=== PATIENT | female | born 1945 | race Caucasian/White ===

== ENCOUNTER 2017-07-25 14:30 | Inpatient (IN) | payer MEDICARE ==
[~2017-07-25] VITALS: Ht 149.9 cm; Wt 50.8 kg
--- NOTE | 2017-07-25 15:05 | NUR ---
Dr. Solis at bedside for MSE.
[2017-07-25 15:43] LABS: BASOPHILS # (AUTO) 0.1 K/uL (0.0-8.0); BASOPHILS % (AUTO) 1.4 % (0.0-2.0); EOSINOPHILS # (AUTO) 0.1 K/uL (0.0-0.7); EOSINOPHILS % (AUTO) 2.4 % (0.0-7.0); HEMATOCRIT 33.6 % (31.2-41.9); HEMOGLOBIN 10.7 g/dL (10.9-14.3); LYMPHOCYTES % (AUTO) 17.2 % (20.5-51.5); MEAN CORPUSCULAR HEMOGLOBIN 19.3 uug (24.7-32.8); MEAN CORPUSCULAR HGB CONC 32 g/dL (32.3-35.6); MEAN CORPUSCULAR VOLUME 60.6 fL (75.5-95.3); MONOCYTES # (AUTO) 0.7 K/uL (2.0-10.0); MONOCYTES % (AUTO) 11.8 % (0.0-11.0); NEUTROPHILS # (AUTO) 3.8 K/uL (1.8-8.9); NEUTROPHILS % (AUTO) 67.2 % (38.5-71.5); PLATELET COUNT (AUTO) 275 K/uL (179-408); RED BLOOD CELL COUNT(AUTO) 5.55 MIL/uL (3.63-4.92); WHITE BLOOD COUNT (AUTO) 5.6 K/uL (3.8-11.8)
[2017-07-25 15:52] LABS: CARBON DIOXIDE 23 mmol/L (21-32); CHLORIDE 110 mmol/L (98-107); CREATININE 0.6 mg/dL (0.6-1.3); GLUCOSE 86 mg/dL (74-106); POTASSIUM 3.8 mmol/L (3.5-5.1); UREA NITROGEN, BLOOD 17 mg/dL (7-18)
[2017-07-25 15:58] LABS: ALANINE AMINOTRANSFERASE 22 U/L (14-59); ALKALINE PHOSPHATASE 64 U/L (50-136); ASPARTATE AMINOTRANSFERASE 20 U/L (15-37); BILIRUBIN,DIRECT 0.2 mg/dL (0.0-0.2); BILIRUBIN,TOTAL 0.8 mg/dL (0.2-1.0); TOTAL PROTEIN, SERUM 6.9 g/dL (6.4-8.2)
[2017-07-25 16:01] LABS: *BILIRUBIN,URIN NEGATIVE (NEGATIVE); *BLOOD, URINE NEGATIVE (NEGATIVE); *COLOR,URINE YELLOW (YELLOW); *KETONES,URINE TRACE (NEGATIVE); *PROTEIN,URINE NEGATIVE (NEGATIVE); *UROBILINOGEN,URINE 0.2 E.U./dl (NORMAL); LEUKOCYTE ESTERASE ,URINE 2+ (NEGATIVE); NITRITE, URINE NEGATIVE (NEGATIVE); UGLUCOSE NEGATIVE (NEGATIVE)
[2017-07-25 16:01] LABS: ETHANOL < 3 MG/DL (0-0)
[2017-07-25 16:08] LABS: *CLARITY,URINE SLIGHTLY HAZY (CLEAR)
[2017-07-25 16:13] LABS: *AMPHETAMINE, URINE NEGATIVE (NEGATIVE); *BARBITURATE, URINE NEGATIVE (NEGATIVE); *CANNABINOID, URINE NEGATIVE (NEGATIVE); *COCCAINE, URINE NEGATIVE (NEGATIVE); *OPIATE, URINE NEGATIVE (NEGATIVE); *PHENCYCLIDINE SCREEN,URINE NEGATIVE (NEGATIVE)
[2017-07-25 16:15] LABS: BACTERIA,URINE FEW /HPF (NONE SEEN); MUCUS,URINE MODERATE /LPF (0-FEW); SQUAMOUS EPITHELIAL CELL,UR FEW /HPF (NONE SEEN)
[2017-07-25 16:29] LABS: BAND % (MANUAL) 1 % (0-10); EOSINOPHILS % (MANUAL) 2 % (0-8); LYMPHOCYTES % (MANUAL) 19 % (20-40); MONOCYTES % (MANUAL) 13 % (2-10); NEUTROPHILS % (MANUAL) 65 % (42-75)
[2017-07-25 16:52] LABS: THYROID STIMULATING HORMONE < 0.007 mIU/mL (0.358-3.740)
[2017-07-25] MEDS ORDERED: MAGNESIUM HYDROXIDE 30 ML LIQUID UDC PO PRN (17:30)
[2017-07-25] MEDS ORDERED: MAG HYDROX/AL HYDROX/SIMETH 30 ML LIQUID UDC PO PRN (17:30)
[2017-07-25] MEDS ORDERED: TEMAZEPAM 7.5 MG CAPSULE PO PRN (17:30)
[2017-07-25 18:34] VITALS: BP 119/65
--- NOTE | 2017-07-25 18:37 | NUR ---
1715 Admitted [facility] psych unit a 72 yr. old female placed on 5150 for danger to self. patient verbalized suicidal ideation, not comply with her medications. Patient has Hx.depression, , bipolar disorder. suicidal ideationw/ plan to hang herself. Patient admitted to unit with a calm manner, cooperative and denies SI,. Admission care done. 1730 Dr. Javed notified with orders . 1800 Dr. Naylor notified of the admission, meds needs to be reconciled.
[2017-07-25 20:38] VITALS: BP 140/60
--- NOTE | 2017-07-25 22:30 | NUR ---
received to care, lying in bed, isolative, but able to make her needs known, to staff. compliant with medications, and staff direction. bactrim ds started tonight, for UTI. continues to deny suicidal ideations, or any desire to harm self. as of 2229, she appears to be asleep. no distress noted. will continue to monitor closely.
[2017-07-25] MEDS: SULFAMETH/TRIMETH 800/160 MG TABLET PO SCH (22:35)
[2017-07-25] MEDS ORDERED: SULFAMETH/TRIMETH 800/160 MG TABLET ONE (22:47)
[2017-07-26 07:30] VITALS: BP 139/58
[2017-07-26 08:10] LABS: IRON, SERUM 57 ug/dL (50-175)
[2017-07-26 08:25] LABS: BASOPHILS # (AUTO) 0.1 K/uL (0.0-8.0); BASOPHILS % (AUTO) 1.3 % (0.0-2.0); EOSINOPHILS # (AUTO) 0.3 K/uL (0.0-0.7); EOSINOPHILS % (AUTO) 4.9 % (0.0-7.0); HEMATOCRIT 35.3 % (31.2-41.9); HEMOGLOBIN 11.1 g/dL (10.9-14.3); LYMPHOCYTES # (AUTO) 1.1 K/uL (20.0-40.0); LYMPHOCYTES % (AUTO) 19.1 % (20.5-51.5); MEAN CORPUSCULAR HEMOGLOBIN 19.2 uug (24.7-32.8); MEAN CORPUSCULAR HGB CONC 32 g/dL (32.3-35.6); MONOCYTES # (AUTO) 0.8 K/uL (2.0-10.0); MONOCYTES % (AUTO) 14.5 % (0.0-11.0); NEUTROPHILS # (AUTO) 3.4 K/uL (1.8-8.9); NEUTROPHILS % (AUTO) 60.2 % (38.5-71.5); PLATELET COUNT (AUTO) 295 K/uL (179-408); RED BLOOD CELL COUNT(AUTO) 5.79 MIL/uL (3.63-4.92); WHITE BLOOD COUNT (AUTO) 5.7 K/uL (3.8-11.8)
[2017-07-26 08:30] LABS: ALANINE AMINOTRANSFERASE 18 U/L (14-59); ALKALINE PHOSPHATASE 62 U/L (50-136); ASPARTATE AMINOTRANSFERASE 19 U/L (15-37); BILIRUBIN,TOTAL 0.6 mg/dL (0.2-1.0); CARBON DIOXIDE 24 mmol/L (21-32); CHLORIDE 104 mmol/L (98-107); CREATININE 0.7 mg/dL (0.6-1.3); GLUCOSE 91 mg/dL (74-106); MAGNESIUM 1.8 mg/dL (1.8-2.4); POTASSIUM 3.3 mmol/L (3.5-5.1); TOTAL PROTEIN, SERUM 6.8 g/dL (6.4-8.2); UREA NITROGEN, BLOOD 20 mg/dL (7-18)
[2017-07-26 09:07] LABS: THYROID STIMULATING HORMONE < 0.007 mIU/mL (0.358-3.740)
[2017-07-26 10:18] LABS: BASOPHILS % (MANUAL) 2 % (0-2); EOSINOPHILS % (MANUAL) 1 % (0-8); LYMPHOCYTES % (MANUAL) 23 % (20-40); MONOCYTES % (MANUAL) 13 % (2-10); NEUTROPHILS % (MANUAL) 61 % (42-75)
[2017-07-26] MEDS ORDERED: POTASSIUM CHLORIDE 10 MEQ CAPSULE.SA PO ONE (11:00)
[2017-07-26] MEDS: SULFAMETH/TRIMETH 800/160 MG TABLET PO SCH ×2 (11:04→20:46)
--- NOTE | 2017-07-26 11:50 | NUR ---
Firearms Report: AVEL completed and submitted [facility] Firearms Report on 07/26/17.
[2017-07-26] MEDS: CLONAZEPAM 0.5 MG TABLET PO SCH ×2 (13:38→17:16)
[2017-07-26 15:11] VITALS: BP 126/53
[2017-07-26 15:15] VITALS: BP 126/53
[2017-07-26] MEDS ORDERED: ZOLP10TA2 PO (15:51)
[2017-07-26] MEDS ORDERED: TOPI100T PO (15:51)
[2017-07-26] MEDS ORDERED: CLON0.5T4 PO (15:51)
[2017-07-26] MEDS ORDERED: RISP0.5T5 PO (15:51)
[2017-07-26] MEDS ORDERED: BUPR150T5 PO (15:51)
[2017-07-26] MEDS ORDERED: LEVO150T PO (15:51)
[2017-07-26] MEDS: BENZTROPINE MESYLATE 0.5 MG TABLET PO SCH (17:16)
[2017-07-26] MEDS: TOPIRAMATE 100 MG TABLET PO SCH (17:16)
[2017-07-26] MEDS: risperiDONE 0.5 MG TABLET PO SCH (20:46)
--- NOTE | 2017-07-26 22:00 | NUR ---
received to care, lying in bed, with family at bedside, pleasant upon approach. compliant with medications, and staff direction. continues to deny suicidal ideations, or any desire to harm self. as of 2199, she appears to be asleep. no distress noted. will continue to monitor closely.
[2017-07-27 08:20] VITALS: BP 145/53
[2017-07-27] MEDS: CLONAZEPAM 0.5 MG TABLET PO SCH ×2 (08:22→16:32)
[2017-07-27] MEDS: risperiDONE 0.25 MG TABLET PO SCH (08:22)
[2017-07-27] MEDS: TOPIRAMATE 100 MG TABLET PO SCH ×2 (08:23→16:32)
[2017-07-27] MEDS: BENZTROPINE MESYLATE 0.5 MG TABLET PO SCH ×2 (08:23→16:32)
[2017-07-27] MEDS: SULFAMETH/TRIMETH 800/160 MG TABLET PO SCH (08:23)
[2017-07-27 09:22] LABS: CARBON DIOXIDE 23 mmol/L (21-32); CHLORIDE 111 mmol/L (98-107); CREATININE 0.7 mg/dL (0.6-1.3); GLUCOSE 102 mg/dL (74-106); POTASSIUM 3.9 mmol/L (3.5-5.1); UREA NITROGEN, BLOOD 22 mg/dL (7-18)
--- NOTE | 2017-07-27 10:23 | NUR ---
Initial Discharge Instructions: Patient resides in her apartment alone [[address] [place] [address], [address] [place] [address]; [phone]]. Per patient she would like to return there upon discharge. Patient verbalized agreement to Home Health if needed, and reported that she does not want to go to an Assisted Living Facility. SW will continue to speak with pt, family, and MD regarding appropriate DC plans. SW will form a safe and proper discharge.
[2017-07-27 20:15] VITALS: BP 138/50
[2017-07-27] MEDS: risperiDONE 0.5 MG TABLET PO SCH (20:22)
[2017-07-28 07:30] VITALS: BP 125/54
[2017-07-28] MEDS: CLONAZEPAM 0.5 MG TABLET PO SCH ×2 (08:16→17:43)
[2017-07-28] MEDS: BENZTROPINE MESYLATE 0.5 MG TABLET PO SCH ×2 (08:16→17:42)
[2017-07-28] MEDS: risperiDONE 0.25 MG TABLET PO SCH (08:16)
[2017-07-28] MEDS: TOPIRAMATE 100 MG TABLET PO SCH ×2 (08:17→17:43)
[2017-07-28 15:15] VITALS: BP 139/97
[2017-07-28 20:00] VITALS: BP 124/50
[2017-07-28] MEDS: risperiDONE 0.5 MG TABLET PO SCH (20:59)
--- NOTE | 2017-07-28 23:00 | NUR ---
GPS: PATIENT C/O INSOMNIA. RESTORIL 7.5 MG PO GIVEN.
[2017-07-29 07:30] VITALS: BP 129/50
[2017-07-29 08:04] LABS: EOSINOPHILS # (AUTO) 0.2 K/uL (0.0-0.7); EOSINOPHILS % (AUTO) 4.5 % (0.0-7.0); HEMOGLOBIN 10.6 g/dL (10.9-14.3); LYMPHOCYTES # (AUTO) 1.5 K/uL (20.0-40.0); LYMPHOCYTES % (AUTO) 31.5 % (20.5-51.5); MEAN CORPUSCULAR HEMOGLOBIN 19.2 uug (24.7-32.8); MEAN CORPUSCULAR HGB CONC 32 g/dL (32.3-35.6); MEAN CORPUSCULAR VOLUME 59.9 fL (75.5-95.3); MONOCYTES # (AUTO) 0.8 K/uL (2.0-10.0); MONOCYTES % (AUTO) 17.4 % (0.0-11.0); NEUTROPHILS # (AUTO) 2.2 K/uL (1.8-8.9); NEUTROPHILS % (AUTO) 45.6 % (38.5-71.5); PLATELET COUNT (AUTO) 246 K/uL (179-408); RED BLOOD CELL COUNT(AUTO) 5.51 MIL/uL (3.63-4.92); WHITE BLOOD COUNT (AUTO) 4.9 K/uL (3.8-11.8)
[2017-07-29 08:45] LABS: ALANINE AMINOTRANSFERASE 17 U/L (14-59); ALKALINE PHOSPHATASE 58 U/L (50-136); ASPARTATE AMINOTRANSFERASE 13 U/L (15-37); BILIRUBIN,TOTAL 0.6 mg/dL (0.2-1.0); CARBON DIOXIDE 24 mmol/L (21-32); CHLORIDE 109 mmol/L (98-107); CREATININE 0.7 mg/dL (0.6-1.3); GLUCOSE 95 mg/dL (74-106); MAGNESIUM 1.8 mg/dL (1.8-2.4); PHOSPHOROUS 3.9 mg/dL (2.5-4.9); POTASSIUM 3.9 mmol/L (3.5-5.1); TOTAL PROTEIN, SERUM 6.4 g/dL (6.4-8.2); UREA NITROGEN, BLOOD 19 mg/dL (7-18)
[2017-07-29] MEDS: CLONAZEPAM 0.5 MG TABLET PO SCH ×2 (08:51→17:02)
[2017-07-29] MEDS: BENZTROPINE MESYLATE 0.5 MG TABLET PO SCH ×2 (08:51→17:02)
[2017-07-29] MEDS: TOPIRAMATE 100 MG TABLET PO SCH ×2 (08:51→17:02)
[2017-07-29] MEDS: risperiDONE 0.25 MG TABLET PO SCH (08:52)
[2017-07-29 09:57] LABS: BASOPHILS % (MANUAL) 1 % (0-2); EOSINOPHILS % (MANUAL) 3 % (0-8); LYMPHOCYTES % (MANUAL) 34 % (20-40); MONOCYTES % (MANUAL) 16 % (2-10); NEUTROPHILS % (MANUAL) 46 % (42-75)
[2017-07-29] MEDS: ACETAMINOPHEN 325 MG TABLET PO PRN (14:02)
[2017-07-29] MEDS: LORAZEPAM 0.5 MG TABLET PO PRN (15:36)
[2017-07-29 16:23] VITALS: BP 146/69
[2017-07-29 20:26] VITALS: BP 135/53
[2017-07-29] MEDS: risperiDONE 0.5 MG TABLET PO SCH (20:34)
[2017-07-30 07:30] VITALS: BP 114/63
[2017-07-30] MEDS: CLONAZEPAM 0.5 MG TABLET PO SCH ×2 (08:28→17:21)
[2017-07-30] MEDS: risperiDONE 0.25 MG TABLET PO SCH (08:28)
[2017-07-30] MEDS: BENZTROPINE MESYLATE 0.5 MG TABLET PO SCH ×2 (08:28→17:22)
[2017-07-30] MEDS: TOPIRAMATE 100 MG TABLET PO SCH ×2 (08:29→17:23)
[2017-07-30] MEDS: ACETAMINOPHEN 325 MG TABLET PO PRN (10:32)
[2017-07-30 15:48] VITALS: BP 121/63
[2017-07-30 20:00] VITALS: BP 127/61
[2017-07-30] MEDS: risperiDONE 0.5 MG TABLET PO SCH (21:18)
[2017-07-31] MEDS: ACETAMINOPHEN 325 MG TABLET PO PRN (00:35)
[2017-07-31 07:30] VITALS: BP 125/55
[2017-07-31] MEDS: CLONAZEPAM 0.5 MG TABLET PO SCH ×2 (08:49→17:54)
[2017-07-31] MEDS: risperiDONE 0.25 MG TABLET PO SCH (08:49)
[2017-07-31] MEDS: BENZTROPINE MESYLATE 0.5 MG TABLET PO SCH ×2 (08:49→17:54)
[2017-07-31] MEDS: TOPIRAMATE 100 MG TABLET PO SCH ×2 (08:50→17:53)
[2017-07-31] MEDS: LORAZEPAM 0.5 MG TABLET PO PRN (15:02)
[2017-07-31 17:19] VITALS: BP 132/61
[2017-07-31 20:02] VITALS: BP 136/63
[2017-07-31] MEDS: risperiDONE 0.5 MG TABLET PO SCH (21:43)
--- NOTE | 2017-07-31 22:00 | NUR ---
RECEIVED PATIENT IN THE DAY ROOM INTERACTING WITH STAFF AND RESIDENTS. SHE WAS NOTED A/O X 3. ABLE TO AMBULATE WITH STEADY GAIT. SHE IS ABLE TO MAKE HER NEEDS KNOW AND ABLE TO COMPLY WITH MEDICATION REGIMENT. SHE C/O MILD LEG PAIN BILATERAL, TYLENOL 650 MG PO PRN WAS GIVEN. SHE WAS NOTED WITH DEPRESSED MOOD, BLUNTED AFFECT. HOWEVER, SHE DENIES SI, VH/AH AT THIS TIME. SHE IS ABLE TO CFS. WILL CONTINUE TO MONITOR.
[2017-08-01 08:00] VITALS: BP 137/50
[2017-08-01] MEDS: BENZTROPINE MESYLATE 0.5 MG TABLET PO SCH ×2 (08:56→17:29)
[2017-08-01] MEDS: CLONAZEPAM 0.5 MG TABLET PO SCH ×2 (08:56→17:29)
[2017-08-01] MEDS: TOPIRAMATE 100 MG TABLET PO SCH ×2 (08:57→17:30)
[2017-08-01] MEDS: risperiDONE 0.25 MG TABLET PO SCH (08:59)
[2017-08-01] MEDS: ACETAMINOPHEN 325 MG TABLET PO PRN ×2 (09:29→22:13)
[2017-08-01 09:32] LABS: *BILIRUBIN,URIN NEGATIVE (NEGATIVE); *BLOOD, URINE NEGATIVE (NEGATIVE); *CLARITY,URINE CLEAR (CLEAR); *COLOR,URINE YELLOW (YELLOW); *KETONES,URINE NEGATIVE (NEGATIVE); *PROTEIN,URINE NEGATIVE (NEGATIVE); *UROBILINOGEN,URINE 0.2 E.U./dl (NORMAL); LEUKOCYTE ESTERASE ,URINE NEGATIVE (NEGATIVE); NITRITE, URINE NEGATIVE (NEGATIVE); UGLUCOSE NEGATIVE (NEGATIVE)
[2017-08-01 10:54] LABS: BACTERIA,URINE FEW /HPF (NONE SEEN); RBC,URINE NONE SEEN /HPF (0-3); SQUAMOUS EPITHELIAL CELL,UR FEW /HPF (NONE SEEN); WBC,URINE 0-3 /HPF (0-3)
--- NOTE | 2017-08-01 11:05 | NUR ---
[facility] [employer] Note: S: When people find out you have Bipolar, they leave. O: When the other group member NAVNEET was talking, pt would look off at the wall and occasionally nod her head in agreement. When talking, pt had normal eye contact and flat affect congruent with mood. A: Pt stated she was optimistic about the fci she was moving to once she leaves. P: Access referrals for outpatient support.
[2017-08-01 15:42] VITALS: BP 149/60
[2017-08-01 19:00] VITALS: BP 134/62
--- NOTE | 2017-08-01 20:00 | NUR ---
PT IS VISIBLE ON THE UNIT, ABLE TO MAKE NEEDS KNOWN,SOMEWHAT ANXIOUS BUT REDIRECTABLE, MED COMPLIANT, WILL CONTINUE TO MONITOR CLOSELY
[2017-08-01] MEDS ORDERED: risperiDONE 0.5 MG TABLET PO SCH (21:00)
[2017-08-01] MEDS ORDERED: risperiDONE 0.25 MG TABLET PO SCH (21:00)
[2017-08-01] MEDS: LORAZEPAM 0.5 MG TABLET PO PRN (21:28)
[2017-08-02 07:30] VITALS: BP 159/96
[2017-08-02 07:52] LABS: BASOPHILS % (AUTO) 0.9 % (0.0-2.0); EOSINOPHILS # (AUTO) 0.3 K/uL (0.0-0.7); EOSINOPHILS % (AUTO) 5.5 % (0.0-7.0); HEMATOCRIT 37.4 % (31.2-41.9); HEMOGLOBIN 11.6 g/dL (10.9-14.3); LYMPHOCYTES # (AUTO) 1.8 K/uL (20.0-40.0); MEAN CORPUSCULAR HEMOGLOBIN 18.8 uug (24.7-32.8); MEAN CORPUSCULAR HGB CONC 31 g/dL (32.3-35.6); MEAN CORPUSCULAR VOLUME 60.6 fL (75.5-95.3); MONOCYTES # (AUTO) 0.7 K/uL (2.0-10.0); MONOCYTES % (AUTO) 12.7 % (0.0-11.0); NEUTROPHILS # (AUTO) 2.4 K/uL (1.8-8.9); NEUTROPHILS % (AUTO) 45.9 % (38.5-71.5); PLATELET COUNT (AUTO) 262 K/uL (179-408); RED BLOOD CELL COUNT(AUTO) 6.17 MIL/uL (3.63-4.92); WHITE BLOOD COUNT (AUTO) 5.1 K/uL (3.8-11.8)
[2017-08-02] MEDS: ACETAMINOPHEN 325 MG TABLET PO PRN (07:55)
[2017-08-02] MEDS: risperiDONE 0.25 MG TABLET PO SCH (07:55)
[2017-08-02] MEDS: CLONAZEPAM 0.5 MG TABLET PO SCH (08:08)
[2017-08-02] MEDS: TOPIRAMATE 100 MG TABLET PO SCH (08:09)
[2017-08-02] MEDS: BENZTROPINE MESYLATE 0.5 MG TABLET PO SCH (08:09)
--- NOTE | 2017-08-02 08:36 | NUR ---
DC Note: Patient will discharge back home with her [id number] [[address] [place] [address]; [phone]] via private transportation between 11am and 11:30am. Spoke with patients [id number], Soraida ([phone]) who has agreed to provide transportation and is agreeable with discharge plans. Patient is aware and agreeable with discharge plans. Patient was given list of Medicare Primary Care Physicians with whom to follow-up. The list includes: Dr. Vidhya Allred [[address], [address], [place] [address]; [phone]]; Dr. Jonathan Martin [[address] [id number]; [phone]]; Dr. Peggy Matthew [[address] [place] [address]; [phone]]; and Dr. Owen Ayala [ [address], [address], [place] [address]; [phone]]. Patient was also given a list of Medicare Psychiatrist Referrals with whom to follow-up. The list includes: Dr. Alfonso Kaur [[address], [place] [address]; [phone]]; Dr. George Rosenbaum [[address] [place] [address]; [phone]]; Dr. Martin Patrick [[address] [place] [address]; [phone]]; Dr. Lane Laboy [[address], [place] [address]; [phone]]; and Dr. Nidhi Fitzpatrick [[address], [place] [address]; [phone]]; Dr. Pk You [[address], [place] [address]; [phone]]. Spoke with Julian at [facility] ([phone]) who has agreed to provide Home Health services to patient starting 08/03/17. Patient and family are agreeable.
[2017-08-02 08:43] LABS: CARBON DIOXIDE 28 mmol/L (21-32); CHLORIDE 109 mmol/L (98-107); CREATININE 0.6 mg/dL (0.6-1.3); GLUCOSE 90 mg/dL (74-106); POTASSIUM 3.6 mmol/L (3.5-5.1); UREA NITROGEN, BLOOD 19 mg/dL (7-18)
[2017-08-02 11:26] LABS: EOSINOPHILS % (MANUAL) 8 % (0-8); LYMPHOCYTES % (MANUAL) 28 % (20-40); MONOCYTES % (MANUAL) 8 % (2-10); NEUTROPHILS % (MANUAL) 56 % (42-75)
--- NOTE | 2017-08-02 12:30 | NUR ---
PT IS ALERT AND ORIENTED X 4. NO DISTRESS NOTED. PT DENIES S.I. PT IS BEING PICKED UP BY HER [id number] MAMADOU, TO GO TO HER HOME AND THEN TO BE TAKEN TO ASSISTED LIVING, ARRANGED BY THE FAMILY. PT IS AGREEING TO DISCHARGE PLAN. PT WAS GIVEN DISCHARGE INSTRUCTIONS, PT AND HER [id number] VERBALIZE UNDERSTANDING, INCLUDING THE NEED TO FOLLOW UP WITH PSYCHIATRIST AND CHANNELER INSOLE AFTER DISCHARGE. ALL PAPERWORK WAS SIGNED, ALL BELONGINGS RETURNED.
== END 2017-08-02 12:30 | disposition home health service (06) | DRG 885 ==
LOC: ER 14:30 → GPS 16:59
PROVIDERS: ADMIT Psychiatry & Neurology Psychosomatic Medicine; ATTEND Internal Medicine
DX: F31.5 Bipolar disorder, current episode depressed, severe, with psychotic features (principal); E88.09 Other disorders of plasma-protein metabolism, not elsewhere classified; D68.9 Coagulation defect, unspecified; E87.1 Hypo-osmolality and hyponatremia; Z91.19 Patient's noncompliance with other medical treatment and regimen; N39.0 Urinary tract infection, site not specified; I11.9 Hypertensive heart disease without heart failure; E03.9 Hypothyroidism, unspecified; F41.9 Anxiety disorder, unspecified; G31.84 Mild cognitive impairment of uncertain or unknown etiology; E87.6 Hypokalemia; D50.9 Iron deficiency anemia, unspecified; Z79.899 Other long term (current) drug therapy
CPT/HCPCS: 36415; 70450; 71045; 80307; 83550; 83735; 84100; 84300; 84443; 84481; 85025; 85730; 87086; 93005; A4663; G0480